=== PATIENT | male | born 1940 | race Caucasian/White ===

== ENCOUNTER → 2016-06-27 | Outpatient (CLI) | payer MEDICARE, OTHER ==
--- NOTE | 2016-06-27 12:46 | Diagnostic Imaging Report ---
INDICATION: Foot ulcer. FINDINGS: Three views of the right foot show no fracture, dislocation, or osteolytic changes in the bone. There are vascular calcifications suggesting diabetes. IMPRESSION: No acute abnormalities in the foot. Dictated by: Dictated on workstation # [id number]
== END ==
LOC: RAD 11:24
PROVIDERS: ATTEND Surgery
DX: E11.621 Type 2 diabetes mellitus with foot ulcer (principal); E11.42 Type 2 diabetes mellitus with diabetic polyneuropathy; L97.411 Non-pressure chronic ulcer of right heel and midfoot limited to breakdown of skin; L97.512 Non-pressure chronic ulcer of other part of right foot with fat layer exposed; I70.235 Atherosclerosis of native arteries of right leg with ulceration of other part of foot; E11.22 Type 2 diabetes mellitus with diabetic chronic kidney disease; N18.6 End stage renal disease
CPT/HCPCS: 73630

== ENCOUNTER 2016-08-10 10:47 | Outpatient (RCR) | payer MEDICARE, OTHER | END 2016-08-10 16:00 | disposition home or self-care (01) | LOC: WOUNDCARE 10:47 | PROVIDERS: ATTEND Surgery | DX: E11.621 Type 2 diabetes mellitus with foot ulcer (principal); E11.42 Type 2 diabetes mellitus with diabetic polyneuropathy; L97.411 Non-pressure chronic ulcer of right heel and midfoot limited to breakdown of skin; L97.512 Non-pressure chronic ulcer of other part of right foot with fat layer exposed; I70.235 Atherosclerosis of native arteries of right leg with ulceration of other part of foot; N18.6 End stage renal disease | CPT/HCPCS: 11042; 73630; 99212; 99213 ==

== ENCOUNTER → 2016-10-22 | Outpatient (CLI) | payer MEDICARE, OTHER ==
--- NOTE | 2016-10-22 14:08 | Diagnostic Imaging Report ---
Three views of the left foot. INDICATION: Chronic ulcer of the fifth metatarsal. FINDINGS: Two areas of ulceration are marked along the lateral aspect of the foot. There are slight irregularities and subchondral sclerosis seen around the adjacent lateral aspect of the fifth metatarsophalangeal joint and associated subchondral cystic change. This appears to be degenerative-related, however. No definite bone destruction or periosteal reaction that correlates with the ulcers to suggest osteomyelitis. Other degenerative changes in the interphalangeal joints seen. No acute fracture. No soft tissue air is evident. IMPRESSION: Degenerative changes. No definite radiographic evidence of osteomyelitis. Dictated by: Dictated on workstation # [id number]
== END ==
LOC: LAB 11:29
PROVIDERS: ATTEND Surgery
DX: E11.621 Type 2 diabetes mellitus with foot ulcer (principal); E11.42 Type 2 diabetes mellitus with diabetic polyneuropathy; I70.244 Atherosclerosis of native arteries of left leg with ulceration of heel and midfoot; L97.422 Non-pressure chronic ulcer of left heel and midfoot with fat layer exposed; I89.0 Lymphedema, not elsewhere classified
CPT/HCPCS: 73630

== ENCOUNTER 2016-12-26 14:45 | Outpatient (RCR) | payer MEDICARE, OTHER | END 2016-12-31 16:00 | disposition home or self-care (01) | LOC: WOUNDCARE 14:45 | PROVIDERS: ATTEND Surgery | DX: E11.621 Type 2 diabetes mellitus with foot ulcer (principal); E11.42 Type 2 diabetes mellitus with diabetic polyneuropathy; L97.422 Non-pressure chronic ulcer of left heel and midfoot with fat layer exposed; I70.244 Atherosclerosis of native arteries of left leg with ulceration of heel and midfoot; I89.0 Lymphedema, not elsewhere classified | CPT/HCPCS: 11042; 15275; 73630; 82962; 87070; 87075; 87077; 87186; 87205 ==

== ENCOUNTER → 2017-01-02 | Outpatient (CLI) | payer MEDICARE, OTHER | LOC: WOUNDCARE 14:15 | PROVIDERS: ATTEND Surgery | DX: E11.621 Type 2 diabetes mellitus with foot ulcer (principal); L97.422 Non-pressure chronic ulcer of left heel and midfoot with fat layer exposed; I70.244 Atherosclerosis of native arteries of left leg with ulceration of heel and midfoot; E11.42 Type 2 diabetes mellitus with diabetic polyneuropathy; N18.6 End stage renal disease | CPT/HCPCS: 15275 ==

== ENCOUNTER → 2017-01-04 | Outpatient (CLI) | payer MEDICARE, OTHER | LOC: WOUNDCARE 14:02 | PROVIDERS: ATTEND Surgery | DX: E11.621 Type 2 diabetes mellitus with foot ulcer (principal); L97.422 Non-pressure chronic ulcer of left heel and midfoot with fat layer exposed; I70.244 Atherosclerosis of native arteries of left leg with ulceration of heel and midfoot; E11.42 Type 2 diabetes mellitus with diabetic polyneuropathy; E11.22 Type 2 diabetes mellitus with diabetic chronic kidney disease; N18.6 End stage renal disease | CPT/HCPCS: 99212 ==

== ENCOUNTER → 2017-01-09 | Outpatient (CLI) | payer MEDICARE, OTHER | LOC: WOUNDCARE 14:17 | PROVIDERS: ATTEND Surgery | DX: E11.621 Type 2 diabetes mellitus with foot ulcer (principal); L97.422 Non-pressure chronic ulcer of left heel and midfoot with fat layer exposed; I70.244 Atherosclerosis of native arteries of left leg with ulceration of heel and midfoot; E11.42 Type 2 diabetes mellitus with diabetic polyneuropathy; E11.22 Type 2 diabetes mellitus with diabetic chronic kidney disease; N18.6 End stage renal disease | CPT/HCPCS: 15275 ==

== ENCOUNTER → 2017-01-11 | Outpatient (CLI) | payer MEDICARE, OTHER | LOC: WOUNDCARE 10:01 | PROVIDERS: ATTEND Surgery | DX: E11.621 Type 2 diabetes mellitus with foot ulcer (principal); L97.422 Non-pressure chronic ulcer of left heel and midfoot with fat layer exposed; I70.244 Atherosclerosis of native arteries of left leg with ulceration of heel and midfoot; E11.42 Type 2 diabetes mellitus with diabetic polyneuropathy; E11.22 Type 2 diabetes mellitus with diabetic chronic kidney disease; N18.6 End stage renal disease | CPT/HCPCS: 99212 ==

== ENCOUNTER → 2017-01-16 | Outpatient (CLI) | payer MEDICARE, OTHER | LOC: WOUNDCARE 14:15 | PROVIDERS: ATTEND Surgery | DX: E11.621 Type 2 diabetes mellitus with foot ulcer (principal); L97.422 Non-pressure chronic ulcer of left heel and midfoot with fat layer exposed; I70.244 Atherosclerosis of native arteries of left leg with ulceration of heel and midfoot; E11.42 Type 2 diabetes mellitus with diabetic polyneuropathy; E11.22 Type 2 diabetes mellitus with diabetic chronic kidney disease; N18.6 End stage renal disease ==

== ENCOUNTER → 2017-01-21 | Outpatient (CLI) | payer MEDICARE, OTHER | LOC: WOUNDCARE 10:26 | PROVIDERS: ATTEND Nurse Practitioner | DX: E11.621 Type 2 diabetes mellitus with foot ulcer (principal); L97.422 Non-pressure chronic ulcer of left heel and midfoot with fat layer exposed; I70.244 Atherosclerosis of native arteries of left leg with ulceration of heel and midfoot; E11.42 Type 2 diabetes mellitus with diabetic polyneuropathy; E11.22 Type 2 diabetes mellitus with diabetic chronic kidney disease; N18.6 End stage renal disease | CPT/HCPCS: 99212 ==

== ENCOUNTER → 2017-01-30 | Outpatient (CLI) | payer MEDICARE, OTHER | LOC: WOUNDCARE 14:12 | PROVIDERS: ATTEND Surgery | DX: E11.621 Type 2 diabetes mellitus with foot ulcer (principal); L97.422 Non-pressure chronic ulcer of left heel and midfoot with fat layer exposed; I70.244 Atherosclerosis of native arteries of left leg with ulceration of heel and midfoot; E11.42 Type 2 diabetes mellitus with diabetic polyneuropathy; N18.6 End stage renal disease | CPT/HCPCS: 11042; 87070; 87075; 87186; 87205 ==

== ENCOUNTER → 2017-02-06 | Outpatient (CLI) | payer MEDICARE, OTHER | LOC: WOUNDCARE 14:11 | PROVIDERS: ATTEND Surgery | DX: E11.621 Type 2 diabetes mellitus with foot ulcer (principal); L97.422 Non-pressure chronic ulcer of left heel and midfoot with fat layer exposed; I70.244 Atherosclerosis of native arteries of left leg with ulceration of heel and midfoot; E11.42 Type 2 diabetes mellitus with diabetic polyneuropathy; N18.6 End stage renal disease | CPT/HCPCS: 11042 ==

== ENCOUNTER → 2017-02-13 | Outpatient (CLI) | payer MEDICARE, OTHER | LOC: WOUNDCARE 13:57 | PROVIDERS: ATTEND Surgery | DX: E11.621 Type 2 diabetes mellitus with foot ulcer (principal); L97.422 Non-pressure chronic ulcer of left heel and midfoot with fat layer exposed; I70.244 Atherosclerosis of native arteries of left leg with ulceration of heel and midfoot; E11.42 Type 2 diabetes mellitus with diabetic polyneuropathy; N18.6 End stage renal disease | CPT/HCPCS: 11042 ==

== ENCOUNTER → 2017-05-17 | Outpatient (CLI) | payer MEDICARE, OTHER ==
--- NOTE | 2017-05-17 13:38 | Diagnostic Imaging Report ---
INDICATION: Pressure ulcer to the lateral aspect of the left foot. FINDINGS: A marker was placed over the level of the distal fifth metatarsal head where a skin ulcer is demonstrated. The metatarsal is intact with no bony erosion. The MP joint appears normal. The phalanges show osteoarthritic changes without destructive bony change. There is mild curved deformity of the fourth metatarsal shaft which may be congenital or secondary to old healed trauma. There is noted diffuse dense vascular calcification. IMPRESSION: Soft tissue ulceration noted along the distal fifth metatarsal head with no bony changes at this time to suggest osteomyelitis. Dictated by: Dictated on workstation # [id number]
== END ==
LOC: RAD 11:44
PROVIDERS: ATTEND Surgery
DX: E11.621 Type 2 diabetes mellitus with foot ulcer (principal); L97.522 Non-pressure chronic ulcer of other part of left foot with fat layer exposed; E11.42 Type 2 diabetes mellitus with diabetic polyneuropathy; E11.22 Type 2 diabetes mellitus with diabetic chronic kidney disease; N18.6 End stage renal disease; I70.245 Atherosclerosis of native arteries of left leg with ulceration of other part of foot
CPT/HCPCS: 73630

== ENCOUNTER → 2017-05-17 | Outpatient (CLI) | payer MEDICARE, OTHER | LOC: WOUNDCARE 09:45 | PROVIDERS: ATTEND Surgery | DX: L97.522 Non-pressure chronic ulcer of other part of left foot with fat layer exposed (principal); E11.621 Type 2 diabetes mellitus with foot ulcer; E11.42 Type 2 diabetes mellitus with diabetic polyneuropathy; I70.245 Atherosclerosis of native arteries of left leg with ulceration of other part of foot; N18.6 End stage renal disease; L97.521 Non-pressure chronic ulcer of other part of left foot limited to breakdown of skin | CPT/HCPCS: 11042; 87070; 87075; 87077; 87186; 87205 ==

== ENCOUNTER → 2017-05-24 | Outpatient (CLI) | payer MEDICARE, OTHER | LOC: WOUNDCARE 10:17 | PROVIDERS: ATTEND Surgery | DX: L97.522 Non-pressure chronic ulcer of other part of left foot with fat layer exposed (principal); E11.621 Type 2 diabetes mellitus with foot ulcer; E11.42 Type 2 diabetes mellitus with diabetic polyneuropathy; I70.245 Atherosclerosis of native arteries of left leg with ulceration of other part of foot; N18.6 End stage renal disease | CPT/HCPCS: 11042 ==

== ENCOUNTER → 2017-06-07 | Outpatient (CLI) | payer MEDICARE, OTHER | LOC: WOUNDCARE 10:19 | PROVIDERS: ATTEND Surgery | DX: L97.522 Non-pressure chronic ulcer of other part of left foot with fat layer exposed (principal); E11.621 Type 2 diabetes mellitus with foot ulcer; E11.42 Type 2 diabetes mellitus with diabetic polyneuropathy; I70.245 Atherosclerosis of native arteries of left leg with ulceration of other part of foot; N18.6 End stage renal disease | CPT/HCPCS: 15275 ==

== ENCOUNTER → 2017-06-14 | Outpatient (CLI) | payer MEDICARE, OTHER | LOC: WOUNDCARE 10:24 | PROVIDERS: ATTEND Surgery | DX: E11.621 Type 2 diabetes mellitus with foot ulcer (principal); E11.42 Type 2 diabetes mellitus with diabetic polyneuropathy; L97.522 Non-pressure chronic ulcer of other part of left foot with fat layer exposed; I70.245 Atherosclerosis of native arteries of left leg with ulceration of other part of foot; N18.6 End stage renal disease | CPT/HCPCS: 15275 ==

== ENCOUNTER → 2017-06-21 | Outpatient (CLI) | payer MEDICARE, OTHER | LOC: WOUNDCARE 09:25 | PROVIDERS: ATTEND Surgery | DX: E11.621 Type 2 diabetes mellitus with foot ulcer (principal); E11.42 Type 2 diabetes mellitus with diabetic polyneuropathy; L97.522 Non-pressure chronic ulcer of other part of left foot with fat layer exposed; I70.245 Atherosclerosis of native arteries of left leg with ulceration of other part of foot; N18.6 End stage renal disease | CPT/HCPCS: 11042 ==

== ENCOUNTER → 2017-06-28 | Outpatient (CLI) | payer MEDICARE, OTHER | LOC: WOUNDCARE 10:13 | PROVIDERS: ATTEND Surgery | DX: E11.621 Type 2 diabetes mellitus with foot ulcer (principal); E11.42 Type 2 diabetes mellitus with diabetic polyneuropathy; L97.522 Non-pressure chronic ulcer of other part of left foot with fat layer exposed; N18.6 End stage renal disease; I70.245 Atherosclerosis of native arteries of left leg with ulceration of other part of foot | CPT/HCPCS: 11042 ==

== ENCOUNTER → 2017-07-05 | Outpatient (CLI) | payer MEDICARE, OTHER | LOC: WOUNDCARE 09:20 | PROVIDERS: ATTEND Surgery | DX: L97.522 Non-pressure chronic ulcer of other part of left foot with fat layer exposed (principal); I70.245 Atherosclerosis of native arteries of left leg with ulceration of other part of foot; E11.621 Type 2 diabetes mellitus with foot ulcer; E11.42 Type 2 diabetes mellitus with diabetic polyneuropathy; N18.6 End stage renal disease | CPT/HCPCS: 11042 ==

== ENCOUNTER → 2017-07-10 | Outpatient (CLI) | payer MEDICARE, OTHER | LOC: WOUNDCARE 09:37 | PROVIDERS: ATTEND Surgery | DX: E11.621 Type 2 diabetes mellitus with foot ulcer (principal); L97.522 Non-pressure chronic ulcer of other part of left foot with fat layer exposed; I70.245 Atherosclerosis of native arteries of left leg with ulceration of other part of foot; T25.232A Burn of second degree of left toe(s) (nail), initial encounter; E11.42 Type 2 diabetes mellitus with diabetic polyneuropathy; E11.22 Type 2 diabetes mellitus with diabetic chronic kidney disease; N18.6 End stage renal disease | CPT/HCPCS: 11042; 16020 ==

== ENCOUNTER → 2017-07-19 | Outpatient (CLI) | payer MEDICARE, OTHER | LOC: WOUNDCARE 09:22 | PROVIDERS: ATTEND Surgery | DX: T25.232A Burn of second degree of left toe(s) (nail), initial encounter (principal); I70.245 Atherosclerosis of native arteries of left leg with ulceration of other part of foot; E11.621 Type 2 diabetes mellitus with foot ulcer; E11.42 Type 2 diabetes mellitus with diabetic polyneuropathy; L97.522 Non-pressure chronic ulcer of other part of left foot with fat layer exposed; N18.6 End stage renal disease | CPT/HCPCS: 16020 ==

== ENCOUNTER → 2017-07-26 | Outpatient (CLI) | payer MEDICARE, OTHER | LOC: WOUNDCARE 09:22 | PROVIDERS: ATTEND Surgery | DX: T25.232A Burn of second degree of left toe(s) (nail), initial encounter (principal); E11.621 Type 2 diabetes mellitus with foot ulcer; E11.42 Type 2 diabetes mellitus with diabetic polyneuropathy; I70.245 Atherosclerosis of native arteries of left leg with ulceration of other part of foot; N18.6 End stage renal disease | CPT/HCPCS: 16020 ==

== ENCOUNTER → 2017-08-02 | Outpatient (CLI) | payer MEDICARE, OTHER | LOC: WOUNDCARE 09:26 | PROVIDERS: ATTEND Surgery | DX: T25.232A Burn of second degree of left toe(s) (nail), initial encounter (principal); E11.621 Type 2 diabetes mellitus with foot ulcer; E11.42 Type 2 diabetes mellitus with diabetic polyneuropathy; I70.245 Atherosclerosis of native arteries of left leg with ulceration of other part of foot; N18.6 End stage renal disease; L97.522 Non-pressure chronic ulcer of other part of left foot with fat layer exposed ==

== ENCOUNTER → 2017-08-07 | Outpatient (CLI) | payer MEDICARE, OTHER | LOC: WOUNDCARE 08:19 | PROVIDERS: ATTEND Surgery | DX: T25.232A Burn of second degree of left toe(s) (nail), initial encounter (principal); E11.621 Type 2 diabetes mellitus with foot ulcer; E11.42 Type 2 diabetes mellitus with diabetic polyneuropathy; I70.245 Atherosclerosis of native arteries of left leg with ulceration of other part of foot; N18.6 End stage renal disease | CPT/HCPCS: 16020 ==

== ENCOUNTER → 2017-08-16 | Outpatient (CLI) | payer MEDICARE, OTHER | LOC: WOUNDCARE 09:16 | PROVIDERS: ATTEND Surgery | DX: T25.332A Burn of third degree of left toe(s) (nail), initial encounter (principal); T25.232A Burn of second degree of left toe(s) (nail), initial encounter; E11.621 Type 2 diabetes mellitus with foot ulcer; E11.42 Type 2 diabetes mellitus with diabetic polyneuropathy; I70.245 Atherosclerosis of native arteries of left leg with ulceration of other part of foot; N18.6 End stage renal disease | CPT/HCPCS: 16020; 87070; 87075; 87186; 87205 ==

== ENCOUNTER → 2017-08-23 | Outpatient (CLI) | payer MEDICARE, OTHER | LOC: WOUNDCARE 09:19 | PROVIDERS: ATTEND Surgery | DX: T25.332A Burn of third degree of left toe(s) (nail), initial encounter (principal); T25.232A Burn of second degree of left toe(s) (nail), initial encounter; E11.621 Type 2 diabetes mellitus with foot ulcer; E11.42 Type 2 diabetes mellitus with diabetic polyneuropathy; I70.245 Atherosclerosis of native arteries of left leg with ulceration of other part of foot; N18.6 End stage renal disease | CPT/HCPCS: 16020 ==

== ENCOUNTER → 2017-08-28 | Outpatient (CLI) | payer MEDICARE, OTHER | LOC: WOUNDCARE 08:21 | PROVIDERS: ATTEND Surgery | DX: E11.621 Type 2 diabetes mellitus with foot ulcer (principal); L97.522 Non-pressure chronic ulcer of other part of left foot with fat layer exposed; L97.521 Non-pressure chronic ulcer of other part of left foot limited to breakdown of skin; I70.245 Atherosclerosis of native arteries of left leg with ulceration of other part of foot; E11.42 Type 2 diabetes mellitus with diabetic polyneuropathy; N18.6 End stage renal disease | CPT/HCPCS: 11042; 16020; 97597 ==

== ENCOUNTER → 2017-09-06 | Outpatient (CLI) | payer MEDICARE, OTHER | LOC: WOUNDCARE 09:20 | PROVIDERS: ATTEND Surgery | DX: L97.522 Non-pressure chronic ulcer of other part of left foot with fat layer exposed (principal); E11.621 Type 2 diabetes mellitus with foot ulcer; E11.42 Type 2 diabetes mellitus with diabetic polyneuropathy; I70.245 Atherosclerosis of native arteries of left leg with ulceration of other part of foot; N18.6 End stage renal disease | CPT/HCPCS: 11042; 87070; 87075; 87077; 87186; 87205 ==

== ENCOUNTER → 2017-09-13 | Outpatient (CLI) | payer MEDICARE, OTHER | LOC: WOUNDCARE 09:23 | PROVIDERS: ATTEND Surgery | DX: E11.621 Type 2 diabetes mellitus with foot ulcer (principal); E11.42 Type 2 diabetes mellitus with diabetic polyneuropathy; L97.522 Non-pressure chronic ulcer of other part of left foot with fat layer exposed; I70.245 Atherosclerosis of native arteries of left leg with ulceration of other part of foot; N18.6 End stage renal disease | CPT/HCPCS: 15275 ==

== ENCOUNTER → 2017-09-27 | Outpatient (CLI) | payer MEDICARE, OTHER | LOC: WOUNDCARE 09:20 | PROVIDERS: ATTEND Nurse Practitioner | DX: E11.621 Type 2 diabetes mellitus with foot ulcer (principal); E11.42 Type 2 diabetes mellitus with diabetic polyneuropathy; L97.522 Non-pressure chronic ulcer of other part of left foot with fat layer exposed; I70.245 Atherosclerosis of native arteries of left leg with ulceration of other part of foot; N18.6 End stage renal disease | CPT/HCPCS: 15275 ==

== ENCOUNTER → 2017-10-04 | Outpatient (CLI) | payer MEDICARE, OTHER | LOC: WOUNDCARE 09:21 | PROVIDERS: ATTEND Surgery | DX: E11.621 Type 2 diabetes mellitus with foot ulcer (principal); E11.42 Type 2 diabetes mellitus with diabetic polyneuropathy; L97.522 Non-pressure chronic ulcer of other part of left foot with fat layer exposed; I70.245 Atherosclerosis of native arteries of left leg with ulceration of other part of foot; N18.6 End stage renal disease | CPT/HCPCS: 15275; 87070; 87075; 87077; 87186; 87205 ==

== ENCOUNTER → 2017-10-25 | Outpatient (CLI) | payer MEDICARE, OTHER | LOC: WOUNDCARE 09:17 | PROVIDERS: ATTEND Surgery | DX: E11.621 Type 2 diabetes mellitus with foot ulcer (principal); E11.42 Type 2 diabetes mellitus with diabetic polyneuropathy; L97.522 Non-pressure chronic ulcer of other part of left foot with fat layer exposed; I70.245 Atherosclerosis of native arteries of left leg with ulceration of other part of foot; N18.6 End stage renal disease | CPT/HCPCS: 15275 ==

== ENCOUNTER → 2017-10-30 | Outpatient (CLI) | payer MEDICARE, OTHER | LOC: WOUNDCARE 10:26 | PROVIDERS: ATTEND Surgery | DX: E11.621 Type 2 diabetes mellitus with foot ulcer (principal); I70.245 Atherosclerosis of native arteries of left leg with ulceration of other part of foot; L97.522 Non-pressure chronic ulcer of other part of left foot with fat layer exposed; E11.42 Type 2 diabetes mellitus with diabetic polyneuropathy; E11.22 Type 2 diabetes mellitus with diabetic chronic kidney disease; N18.6 End stage renal disease | CPT/HCPCS: 15275 ==

== ENCOUNTER → 2017-11-04 | Outpatient (CLI) | payer MEDICARE, OTHER | LOC: WOUNDCARE 13:00 | PROVIDERS: ATTEND Nurse Practitioner | DX: E11.621 Type 2 diabetes mellitus with foot ulcer (principal); E11.42 Type 2 diabetes mellitus with diabetic polyneuropathy; L97.522 Non-pressure chronic ulcer of other part of left foot with fat layer exposed; I70.245 Atherosclerosis of native arteries of left leg with ulceration of other part of foot; N18.6 End stage renal disease | CPT/HCPCS: 15275 ==

== ENCOUNTER → 2017-11-15 | Outpatient (CLI) | payer MEDICARE, OTHER | LOC: WOUNDCARE 07:59 | PROVIDERS: ATTEND Surgery | DX: E11.621 Type 2 diabetes mellitus with foot ulcer (principal); L97.522 Non-pressure chronic ulcer of other part of left foot with fat layer exposed; I70.245 Atherosclerosis of native arteries of left leg with ulceration of other part of foot; E11.42 Type 2 diabetes mellitus with diabetic polyneuropathy; N18.6 End stage renal disease | CPT/HCPCS: 15275 ==

== ENCOUNTER → 2017-11-29 | Outpatient (CLI) | payer MEDICARE, OTHER | LOC: WOUNDCARE 08:59 | PROVIDERS: ATTEND Surgery | DX: E11.621 Type 2 diabetes mellitus with foot ulcer (principal); E11.42 Type 2 diabetes mellitus with diabetic polyneuropathy; L97.522 Non-pressure chronic ulcer of other part of left foot with fat layer exposed; I70.245 Atherosclerosis of native arteries of left leg with ulceration of other part of foot; N18.6 End stage renal disease | CPT/HCPCS: 15275 ==

== ENCOUNTER → 2017-12-06 | Outpatient (CLI) | payer MEDICARE, OTHER | LOC: WOUNDCARE 08:49 | PROVIDERS: ATTEND Surgery | DX: E11.621 Type 2 diabetes mellitus with foot ulcer (principal); I70.245 Atherosclerosis of native arteries of left leg with ulceration of other part of foot; L97.522 Non-pressure chronic ulcer of other part of left foot with fat layer exposed; E11.42 Type 2 diabetes mellitus with diabetic polyneuropathy; N18.6 End stage renal disease | CPT/HCPCS: 11042 ==

== ENCOUNTER → 2017-12-13 | Outpatient (CLI) | payer MEDICARE, OTHER | LOC: WOUNDCARE 07:58 | PROVIDERS: ATTEND Surgery | DX: E11.621 Type 2 diabetes mellitus with foot ulcer (principal); L97.522 Non-pressure chronic ulcer of other part of left foot with fat layer exposed; E11.42 Type 2 diabetes mellitus with diabetic polyneuropathy; I70.245 Atherosclerosis of native arteries of left leg with ulceration of other part of foot; N18.6 End stage renal disease | CPT/HCPCS: 11042 ==

== ENCOUNTER → 2017-12-20 | Outpatient (CLI) | payer MEDICARE, OTHER | LOC: WOUNDCARE 08:02 | PROVIDERS: ATTEND Surgery | DX: E11.621 Type 2 diabetes mellitus with foot ulcer (principal); L97.522 Non-pressure chronic ulcer of other part of left foot with fat layer exposed; E11.42 Type 2 diabetes mellitus with diabetic polyneuropathy; I70.245 Atherosclerosis of native arteries of left leg with ulceration of other part of foot; N18.6 End stage renal disease | CPT/HCPCS: 11042 ==

== ENCOUNTER → 2017-12-27 | Outpatient (CLI) | payer MEDICARE, OTHER | LOC: WOUNDCARE 08:10 | PROVIDERS: ATTEND Surgery | DX: E11.621 Type 2 diabetes mellitus with foot ulcer (principal); L97.522 Non-pressure chronic ulcer of other part of left foot with fat layer exposed; E11.42 Type 2 diabetes mellitus with diabetic polyneuropathy; I70.245 Atherosclerosis of native arteries of left leg with ulceration of other part of foot; N18.6 End stage renal disease | CPT/HCPCS: 11042 ==

== ENCOUNTER → 2018-01-03 | Outpatient (CLI) | payer MEDICARE, OTHER | LOC: WOUNDCARE 08:58 | PROVIDERS: ATTEND Nurse Practitioner | DX: E11.621 Type 2 diabetes mellitus with foot ulcer (principal); I70.245 Atherosclerosis of native arteries of left leg with ulceration of other part of foot; L97.522 Non-pressure chronic ulcer of other part of left foot with fat layer exposed; E11.42 Type 2 diabetes mellitus with diabetic polyneuropathy; N18.6 End stage renal disease | CPT/HCPCS: 11042; 87070; 87075; 87077; 87186; 87205 ==

== ENCOUNTER → 2018-01-10 | Outpatient (CLI) | payer MEDICARE, OTHER | LOC: WOUNDCARE 08:22 | PROVIDERS: ATTEND Surgery | DX: E11.621 Type 2 diabetes mellitus with foot ulcer (principal); L97.522 Non-pressure chronic ulcer of other part of left foot with fat layer exposed; E11.42 Type 2 diabetes mellitus with diabetic polyneuropathy; I70.245 Atherosclerosis of native arteries of left leg with ulceration of other part of foot; N18.6 End stage renal disease | CPT/HCPCS: 11042 ==

== ENCOUNTER → 2018-01-17 | Outpatient (CLI) | payer MEDICARE, OTHER | LOC: WOUNDCARE 08:21 | PROVIDERS: ATTEND Surgery | DX: E11.621 Type 2 diabetes mellitus with foot ulcer (principal); E11.42 Type 2 diabetes mellitus with diabetic polyneuropathy; L97.522 Non-pressure chronic ulcer of other part of left foot with fat layer exposed; I70.245 Atherosclerosis of native arteries of left leg with ulceration of other part of foot; N18.6 End stage renal disease | CPT/HCPCS: 15275 ==

== ENCOUNTER → 2018-01-31 | Outpatient (CLI) | payer MEDICARE, OTHER | LOC: WOUNDCARE 08:50 | PROVIDERS: ATTEND Surgery | DX: E11.621 Type 2 diabetes mellitus with foot ulcer (principal); E11.42 Type 2 diabetes mellitus with diabetic polyneuropathy; L97.522 Non-pressure chronic ulcer of other part of left foot with fat layer exposed; I70.245 Atherosclerosis of native arteries of left leg with ulceration of other part of foot; N18.6 End stage renal disease | CPT/HCPCS: 15275 ==

== ENCOUNTER → 2018-02-07 | Outpatient (CLI) | payer MEDICARE, OTHER | LOC: WOUNDCARE 08:48 | PROVIDERS: ATTEND Surgery | DX: E11.621 Type 2 diabetes mellitus with foot ulcer (principal); L97.522 Non-pressure chronic ulcer of other part of left foot with fat layer exposed; I70.245 Atherosclerosis of native arteries of left leg with ulceration of other part of foot; N18.6 End stage renal disease | CPT/HCPCS: 99212 ==

== ENCOUNTER → 2018-05-05 | Outpatient (CLI) | payer MEDICARE, OTHER | LOC: WOUNDCARE 12:06 | PROVIDERS: ATTEND Nurse Practitioner | DX: E11.622 Type 2 diabetes mellitus with other skin ulcer (principal); L03.011 Cellulitis of right finger; L98.492 Non-pressure chronic ulcer of skin of other sites with fat layer exposed; N18.6 End stage renal disease | CPT/HCPCS: 99213 ==

== ENCOUNTER → 2018-05-12 | Outpatient (CLI) | payer MEDICARE, OTHER | LOC: WOUNDCARE 12:07 | PROVIDERS: ATTEND Nurse Practitioner | DX: E11.622 Type 2 diabetes mellitus with other skin ulcer (principal); L98.492 Non-pressure chronic ulcer of skin of other sites with fat layer exposed; L03.011 Cellulitis of right finger; N18.6 End stage renal disease | CPT/HCPCS: 99212 ==

== ENCOUNTER → 2018-05-19 | Outpatient (CLI) | payer MEDICARE, OTHER | LOC: WOUNDCARE 12:26 | PROVIDERS: ATTEND Nurse Practitioner | DX: E11.622 Type 2 diabetes mellitus with other skin ulcer (principal); L98.492 Non-pressure chronic ulcer of skin of other sites with fat layer exposed; L03.011 Cellulitis of right finger; N18.6 End stage renal disease | CPT/HCPCS: 99212 ==

== ENCOUNTER → 2018-06-02 | Outpatient (CLI) | payer MEDICARE, OTHER | LOC: WOUNDCARE 08:08 | PROVIDERS: ATTEND Nurse Practitioner | DX: E11.622 Type 2 diabetes mellitus with other skin ulcer (principal); L98.492 Non-pressure chronic ulcer of skin of other sites with fat layer exposed; L03.011 Cellulitis of right finger; N18.6 End stage renal disease | CPT/HCPCS: 99212 ==

== ENCOUNTER → 2018-06-16 | Outpatient (CLI) | payer MEDICARE, OTHER | LOC: WOUNDCARE 12:25 | PROVIDERS: ATTEND Surgery | DX: I70.298 Other atherosclerosis of native arteries of extremities, other extremity (principal); E11.622 Type 2 diabetes mellitus with other skin ulcer; L98.492 Non-pressure chronic ulcer of skin of other sites with fat layer exposed; L03.011 Cellulitis of right finger; N18.6 End stage renal disease | CPT/HCPCS: 99212 ==

== ENCOUNTER → 2018-06-23 | Outpatient (CLI) | payer MEDICARE, OTHER | LOC: WOUNDCARE 12:22 | PROVIDERS: ATTEND Surgery | DX: E11.622 Type 2 diabetes mellitus with other skin ulcer (principal); I70.298 Other atherosclerosis of native arteries of extremities, other extremity; L98.492 Non-pressure chronic ulcer of skin of other sites with fat layer exposed; N18.6 End stage renal disease | CPT/HCPCS: 99212 ==

== ENCOUNTER → 2018-06-30 | Outpatient (CLI) | payer MEDICARE, OTHER | LOC: WOUNDCARE 12:24 | PROVIDERS: ATTEND Surgery | DX: E11.622 Type 2 diabetes mellitus with other skin ulcer (principal); L98.492 Non-pressure chronic ulcer of skin of other sites with fat layer exposed; I70.298 Other atherosclerosis of native arteries of extremities, other extremity; N18.6 End stage renal disease | CPT/HCPCS: 99212 ==

== ENCOUNTER → 2018-07-14 | Outpatient (CLI) | payer MEDICARE, OTHER | LOC: WOUNDCARE 12:22 | PROVIDERS: ATTEND Surgery | DX: E11.622 Type 2 diabetes mellitus with other skin ulcer (principal); I70.298 Other atherosclerosis of native arteries of extremities, other extremity; L98.492 Non-pressure chronic ulcer of skin of other sites with fat layer exposed; N18.6 End stage renal disease | CPT/HCPCS: 99212 ==

== ENCOUNTER → 2018-07-28 | Outpatient (CLI) | payer MEDICARE, OTHER | LOC: WOUNDCARE 12:23 | PROVIDERS: ATTEND Surgery | DX: E11.622 Type 2 diabetes mellitus with other skin ulcer (principal); I70.298 Other atherosclerosis of native arteries of extremities, other extremity; L98.492 Non-pressure chronic ulcer of skin of other sites with fat layer exposed; N18.6 End stage renal disease | CPT/HCPCS: 99213 ==

== ENCOUNTER → 2018-08-11 | Outpatient (CLI) | payer MEDICARE, OTHER | LOC: WOUNDCARE 12:31 | PROVIDERS: ATTEND Surgery | DX: E11.622 Type 2 diabetes mellitus with other skin ulcer (principal); I70.298 Other atherosclerosis of native arteries of extremities, other extremity; L98.492 Non-pressure chronic ulcer of skin of other sites with fat layer exposed; N18.6 End stage renal disease | CPT/HCPCS: 99212 ==

== ENCOUNTER → 2018-08-25 | Outpatient (CLI) | payer MEDICARE, OTHER | LOC: WOUNDCARE 12:38 | PROVIDERS: ATTEND Surgery | DX: E11.622 Type 2 diabetes mellitus with other skin ulcer (principal); I70.298 Other atherosclerosis of native arteries of extremities, other extremity; L98.491 Non-pressure chronic ulcer of skin of other sites limited to breakdown of skin; L98.492 Non-pressure chronic ulcer of skin of other sites with fat layer exposed; N18.6 End stage renal disease | CPT/HCPCS: 99213 ==

== ENCOUNTER → 2018-09-08 | Outpatient (CLI) | payer MEDICARE, OTHER | LOC: WOUNDCARE 12:39 | PROVIDERS: ATTEND Surgery | DX: E11.622 Type 2 diabetes mellitus with other skin ulcer (principal); I70.298 Other atherosclerosis of native arteries of extremities, other extremity; L98.491 Non-pressure chronic ulcer of skin of other sites limited to breakdown of skin; L98.492 Non-pressure chronic ulcer of skin of other sites with fat layer exposed; N18.6 End stage renal disease | CPT/HCPCS: 99212 ==

== ENCOUNTER → 2018-10-01 | Outpatient (CLI) | payer MEDICARE, OTHER | LOC: WOUNDCARE 14:24 | PROVIDERS: ATTEND Surgery | DX: I70.298 Other atherosclerosis of native arteries of extremities, other extremity (principal); E11.622 Type 2 diabetes mellitus with other skin ulcer; L98.493 Non-pressure chronic ulcer of skin of other sites with necrosis of muscle; L03.113 Cellulitis of right upper limb; N18.6 End stage renal disease | CPT/HCPCS: 11043; 87070; 87077; 87186; 87205 ==

== ENCOUNTER → 2018-10-06 | Outpatient (CLI) | payer MEDICARE, OTHER | LOC: WOUNDCARE 12:39 | PROVIDERS: ATTEND Surgery | DX: I70.298 Other atherosclerosis of native arteries of extremities, other extremity (principal); E11.622 Type 2 diabetes mellitus with other skin ulcer; L98.493 Non-pressure chronic ulcer of skin of other sites with necrosis of muscle; L03.113 Cellulitis of right upper limb; E11.22 Type 2 diabetes mellitus with diabetic chronic kidney disease; N18.6 End stage renal disease | CPT/HCPCS: 99213 ==

== ENCOUNTER → 2018-10-13 | Outpatient (CLI) | payer MEDICARE, OTHER | LOC: WOUNDCARE 12:40 | PROVIDERS: ATTEND Surgery | DX: I70.298 Other atherosclerosis of native arteries of extremities, other extremity (principal); E11.622 Type 2 diabetes mellitus with other skin ulcer; L98.493 Non-pressure chronic ulcer of skin of other sites with necrosis of muscle; L03.113 Cellulitis of right upper limb; E11.22 Type 2 diabetes mellitus with diabetic chronic kidney disease; N18.6 End stage renal disease | CPT/HCPCS: 99212 ==

== ENCOUNTER → 2018-10-20 | Outpatient (CLI) | payer MEDICARE, OTHER | LOC: WOUNDCARE 12:34 | PROVIDERS: ATTEND Surgery | DX: E11.622 Type 2 diabetes mellitus with other skin ulcer (principal); I70.298 Other atherosclerosis of native arteries of extremities, other extremity; L98.493 Non-pressure chronic ulcer of skin of other sites with necrosis of muscle; E11.22 Type 2 diabetes mellitus with diabetic chronic kidney disease; N18.6 End stage renal disease | CPT/HCPCS: 99212 ==

== ENCOUNTER → 2018-11-03 | Outpatient (CLI) | payer MEDICARE, OTHER | LOC: WOUNDCARE 12:43 | PROVIDERS: ATTEND Surgery | DX: E11.622 Type 2 diabetes mellitus with other skin ulcer (principal); I70.298 Other atherosclerosis of native arteries of extremities, other extremity; L98.493 Non-pressure chronic ulcer of skin of other sites with necrosis of muscle; E11.22 Type 2 diabetes mellitus with diabetic chronic kidney disease; N18.6 End stage renal disease | CPT/HCPCS: 99212 ==

== ENCOUNTER → 2018-11-10 | Outpatient (CLI) | payer MEDICARE, OTHER | LOC: WOUNDCARE 14:05 | PROVIDERS: ATTEND Surgery | DX: E11.622 Type 2 diabetes mellitus with other skin ulcer (principal); I70.298 Other atherosclerosis of native arteries of extremities, other extremity; L98.493 Non-pressure chronic ulcer of skin of other sites with necrosis of muscle; E11.22 Type 2 diabetes mellitus with diabetic chronic kidney disease; N18.6 End stage renal disease | CPT/HCPCS: 99212 ==

== ENCOUNTER → 2018-11-24 | Outpatient (CLI) | payer MEDICARE, OTHER | LOC: WOUNDCARE 08:51 | PROVIDERS: ATTEND Surgery | DX: E11.622 Type 2 diabetes mellitus with other skin ulcer (principal); I70.298 Other atherosclerosis of native arteries of extremities, other extremity; L98.493 Non-pressure chronic ulcer of skin of other sites with necrosis of muscle; E11.22 Type 2 diabetes mellitus with diabetic chronic kidney disease; N18.6 End stage renal disease | CPT/HCPCS: 99212 ==

== ENCOUNTER → 2018-12-08 | Outpatient (CLI) | payer MEDICARE, OTHER | LOC: WOUNDCARE 11:22 | PROVIDERS: ATTEND Surgery | DX: L98.493 Non-pressure chronic ulcer of skin of other sites with necrosis of muscle (principal); I70.298 Other atherosclerosis of native arteries of extremities, other extremity; E11.622 Type 2 diabetes mellitus with other skin ulcer; E11.22 Type 2 diabetes mellitus with diabetic chronic kidney disease; N18.6 End stage renal disease | CPT/HCPCS: 99212 ==

== ENCOUNTER → 2018-12-22 | Outpatient (CLI) | payer MEDICARE, OTHER | LOC: WOUNDCARE 11:23 | PROVIDERS: ATTEND Surgery | DX: L98.493 Non-pressure chronic ulcer of skin of other sites with necrosis of muscle (principal); I70.298 Other atherosclerosis of native arteries of extremities, other extremity; E11.622 Type 2 diabetes mellitus with other skin ulcer; E11.22 Type 2 diabetes mellitus with diabetic chronic kidney disease; N18.6 End stage renal disease; E11.52 Type 2 diabetes mellitus with diabetic peripheral angiopathy with gangrene; I96 Gangrene, not elsewhere classified | CPT/HCPCS: 99212 ==

== ENCOUNTER → 2019-01-26 | Outpatient (CLI) | payer MEDICARE, OTHER | LOC: WOUNDCARE 11:23 | PROVIDERS: ATTEND Surgery | DX: E11.622 Type 2 diabetes mellitus with other skin ulcer (principal); E11.52 Type 2 diabetes mellitus with diabetic peripheral angiopathy with gangrene; E11.22 Type 2 diabetes mellitus with diabetic chronic kidney disease; N18.6 End stage renal disease; I70.268 Atherosclerosis of native arteries of extremities with gangrene, other extremity; L98.493 Non-pressure chronic ulcer of skin of other sites with necrosis of muscle | CPT/HCPCS: 99212 ==

== ENCOUNTER → 2019-02-23 | Outpatient (CLI) | payer MEDICARE, OTHER | LOC: WOUNDCARE 11:24 | PROVIDERS: ATTEND Surgery | DX: E11.622 Type 2 diabetes mellitus with other skin ulcer (principal); E11.52 Type 2 diabetes mellitus with diabetic peripheral angiopathy with gangrene; E11.22 Type 2 diabetes mellitus with diabetic chronic kidney disease; I70.268 Atherosclerosis of native arteries of extremities with gangrene, other extremity; L98.493 Non-pressure chronic ulcer of skin of other sites with necrosis of muscle; M00.841 Arthritis due to other bacteria, right hand; N18.6 End stage renal disease | CPT/HCPCS: 11042 ==

== ENCOUNTER → 2019-03-02 | Outpatient (CLI) | payer MEDICARE, OTHER | LOC: WOUNDCARE 11:24 | PROVIDERS: ATTEND Surgery | DX: E11.622 Type 2 diabetes mellitus with other skin ulcer (principal); E11.22 Type 2 diabetes mellitus with diabetic chronic kidney disease; E11.52 Type 2 diabetes mellitus with diabetic peripheral angiopathy with gangrene; I70.268 Atherosclerosis of native arteries of extremities with gangrene, other extremity; L98.492 Non-pressure chronic ulcer of skin of other sites with fat layer exposed; N18.6 End stage renal disease; M00.841 Arthritis due to other bacteria, right hand | CPT/HCPCS: 99212 ==

== ENCOUNTER → 2019-03-16 | Outpatient (CLI) | payer MEDICARE, OTHER | LOC: WOUNDCARE 11:18 | PROVIDERS: ATTEND Surgery | DX: L98.492 Non-pressure chronic ulcer of skin of other sites with fat layer exposed (principal); I70.208 Unspecified atherosclerosis of native arteries of extremities, other extremity; E11.622 Type 2 diabetes mellitus with other skin ulcer; E11.52 Type 2 diabetes mellitus with diabetic peripheral angiopathy with gangrene; E11.22 Type 2 diabetes mellitus with diabetic chronic kidney disease; N18.6 End stage renal disease | CPT/HCPCS: 99212 ==

== ENCOUNTER → 2019-04-06 | Outpatient (CLI) | payer MEDICARE, OTHER | LOC: WOUNDCARE 13:17 | PROVIDERS: ATTEND Surgery | DX: M00.841 Arthritis due to other bacteria, right hand (principal); L98.492 Non-pressure chronic ulcer of skin of other sites with fat layer exposed; I70.208 Unspecified atherosclerosis of native arteries of extremities, other extremity; E11.622 Type 2 diabetes mellitus with other skin ulcer; E11.52 Type 2 diabetes mellitus with diabetic peripheral angiopathy with gangrene; E11.22 Type 2 diabetes mellitus with diabetic chronic kidney disease; N18.6 End stage renal disease | CPT/HCPCS: 99212 ==

== ENCOUNTER → 2019-05-04 | Outpatient (CLI) | payer MEDICARE, OTHER | LOC: WOUNDCARE 14:11 | PROVIDERS: ATTEND Surgery | DX: E11.622 Type 2 diabetes mellitus with other skin ulcer (principal); E11.52 Type 2 diabetes mellitus with diabetic peripheral angiopathy with gangrene; E11.22 Type 2 diabetes mellitus with diabetic chronic kidney disease; N18.6 End stage renal disease; I70.268 Atherosclerosis of native arteries of extremities with gangrene, other extremity; L98.492 Non-pressure chronic ulcer of skin of other sites with fat layer exposed; M00.841 Arthritis due to other bacteria, right hand | CPT/HCPCS: 99212 ==

== ENCOUNTER → 2019-05-25 | Outpatient (CLI) | payer MEDICARE, OTHER | LOC: WOUNDCARE 14:02 | PROVIDERS: ATTEND Surgery | DX: L98.492 Non-pressure chronic ulcer of skin of other sites with fat layer exposed (principal); I70.298 Other atherosclerosis of native arteries of extremities, other extremity; E11.622 Type 2 diabetes mellitus with other skin ulcer; E11.52 Type 2 diabetes mellitus with diabetic peripheral angiopathy with gangrene; M00.831 Arthritis due to other bacteria, right wrist; N18.6 End stage renal disease | CPT/HCPCS: 11042 ==

== ENCOUNTER → 2019-06-22 | Outpatient (CLI) | payer MEDICARE, OTHER | LOC: WOUNDCARE 14:02 | PROVIDERS: ATTEND Preventive Medicine Undersea and Hyperbaric Medicine | DX: E11.622 Type 2 diabetes mellitus with other skin ulcer (principal); L98.492 Non-pressure chronic ulcer of skin of other sites with fat layer exposed; I70.298 Other atherosclerosis of native arteries of extremities, other extremity; M00.831 Arthritis due to other bacteria, right wrist; N18.6 End stage renal disease | CPT/HCPCS: 87070; 87075; 87205; 99213 ==

== ENCOUNTER → 2019-07-13 | Outpatient (CLI) | payer MEDICARE, OTHER | LOC: WOUNDCARE 14:07 | PROVIDERS: ATTEND Preventive Medicine Undersea and Hyperbaric Medicine | DX: E11.622 Type 2 diabetes mellitus with other skin ulcer (principal); L98.492 Non-pressure chronic ulcer of skin of other sites with fat layer exposed; I70.298 Other atherosclerosis of native arteries of extremities, other extremity; M00.831 Arthritis due to other bacteria, right wrist; N18.6 End stage renal disease | CPT/HCPCS: 99212 ==

== ENCOUNTER → 2019-08-03 | Outpatient (CLI) | payer MEDICARE, OTHER | LOC: WOUNDCARE 12:39 | PROVIDERS: ATTEND Surgery | DX: L98.492 Non-pressure chronic ulcer of skin of other sites with fat layer exposed (principal); I70.208 Unspecified atherosclerosis of native arteries of extremities, other extremity; E11.622 Type 2 diabetes mellitus with other skin ulcer; E11.52 Type 2 diabetes mellitus with diabetic peripheral angiopathy with gangrene; E11.22 Type 2 diabetes mellitus with diabetic chronic kidney disease; N18.6 End stage renal disease | CPT/HCPCS: 99212 ==

== ENCOUNTER → 2019-08-31 | Outpatient (CLI) | payer MEDICARE, OTHER | LOC: WOUNDCARE 14:00 | PROVIDERS: ATTEND Surgery | DX: E11.622 Type 2 diabetes mellitus with other skin ulcer (principal); L98.492 Non-pressure chronic ulcer of skin of other sites with fat layer exposed; I70.208 Unspecified atherosclerosis of native arteries of extremities, other extremity; E11.22 Type 2 diabetes mellitus with diabetic chronic kidney disease; N18.6 End stage renal disease | CPT/HCPCS: 99212 ==

== ENCOUNTER → 2019-09-21 | Outpatient (CLI) | payer MEDICARE, OTHER | LOC: WOUNDCARE 14:04 | PROVIDERS: ATTEND Surgery | DX: E11.622 Type 2 diabetes mellitus with other skin ulcer (principal); L98.493 Non-pressure chronic ulcer of skin of other sites with necrosis of muscle; I70.208 Unspecified atherosclerosis of native arteries of extremities, other extremity; E11.22 Type 2 diabetes mellitus with diabetic chronic kidney disease; N18.6 End stage renal disease; Z99.2 Dependence on renal dialysis | CPT/HCPCS: 99212 ==

== ENCOUNTER → 2019-10-12 | Outpatient (CLI) | payer MEDICARE, OTHER | LOC: WOUNDCARE 14:13 | PROVIDERS: ATTEND Surgery | DX: E11.622 Type 2 diabetes mellitus with other skin ulcer (principal); L98.496 Non-pressure chronic ulcer of skin of other sites with bone involvement without evidence of necrosis; I70.208 Unspecified atherosclerosis of native arteries of extremities, other extremity; E11.22 Type 2 diabetes mellitus with diabetic chronic kidney disease; N18.6 End stage renal disease; Z99.2 Dependence on renal dialysis | CPT/HCPCS: 99212 ==

== ENCOUNTER → 2019-11-02 | Outpatient (CLI) | payer MEDICARE, OTHER | LOC: WOUNDCARE 14:05 | PROVIDERS: ATTEND Surgery | DX: L98.496 Non-pressure chronic ulcer of skin of other sites with bone involvement without evidence of necrosis (principal); I70.298 Other atherosclerosis of native arteries of extremities, other extremity; E11.622 Type 2 diabetes mellitus with other skin ulcer; E11.22 Type 2 diabetes mellitus with diabetic chronic kidney disease; N18.6 End stage renal disease; M86.441 Chronic osteomyelitis with draining sinus, right hand; E11.52 Type 2 diabetes mellitus with diabetic peripheral angiopathy with gangrene | CPT/HCPCS: 99212 ==

== ENCOUNTER → 2019-11-23 | Outpatient (CLI) | payer MEDICARE, OTHER | LOC: WOUNDCARE 14:02 | PROVIDERS: ATTEND Surgery | DX: L97.426 Non-pressure chronic ulcer of left heel and midfoot with bone involvement without evidence of necrosis (principal); I70.208 Unspecified atherosclerosis of native arteries of extremities, other extremity; E11.622 Type 2 diabetes mellitus with other skin ulcer; E11.22 Type 2 diabetes mellitus with diabetic chronic kidney disease; N18.6 End stage renal disease; M86.441 Chronic osteomyelitis with draining sinus, right hand | CPT/HCPCS: 99212 ==

== ENCOUNTER → 2019-12-14 | Outpatient (CLI) | payer MEDICARE, OTHER | LOC: WOUNDCARE 14:02 | PROVIDERS: ATTEND Surgery | DX: E11.622 Type 2 diabetes mellitus with other skin ulcer (principal); E11.52 Type 2 diabetes mellitus with diabetic peripheral angiopathy with gangrene; E11.22 Type 2 diabetes mellitus with diabetic chronic kidney disease; I70.268 Atherosclerosis of native arteries of extremities with gangrene, other extremity; L98.496 Non-pressure chronic ulcer of skin of other sites with bone involvement without evidence of necrosis; M86.441 Chronic osteomyelitis with draining sinus, right hand; N18.6 End stage renal disease | CPT/HCPCS: 99212 ==

== ENCOUNTER → 2020-01-04 | Outpatient (CLI) | payer MEDICARE, OTHER | LOC: WOUNDCARE 14:04 | PROVIDERS: ATTEND Surgery | DX: E11.622 Type 2 diabetes mellitus with other skin ulcer (principal); E11.22 Type 2 diabetes mellitus with diabetic chronic kidney disease; N18.6 End stage renal disease; M86.441 Chronic osteomyelitis with draining sinus, right hand; I70.268 Atherosclerosis of native arteries of extremities with gangrene, other extremity; E11.52 Type 2 diabetes mellitus with diabetic peripheral angiopathy with gangrene; L98.496 Non-pressure chronic ulcer of skin of other sites with bone involvement without evidence of necrosis; Z86.73 Personal history of transient ischemic attack (TIA), and cerebral infarction without residual deficits; I12.0 Hypertensive chronic kidney disease with stage 5 chronic kidney disease or end stage renal disease; Z99.2 Dependence on renal dialysis | CPT/HCPCS: 99212 ==

== ENCOUNTER → 2020-01-25 | Outpatient (CLI) | payer MEDICARE, OTHER | LOC: WOUNDCARE 14:07 | PROVIDERS: ATTEND Surgery | DX: E11.622 Type 2 diabetes mellitus with other skin ulcer (principal); E11.22 Type 2 diabetes mellitus with diabetic chronic kidney disease; E11.52 Type 2 diabetes mellitus with diabetic peripheral angiopathy with gangrene; N18.6 End stage renal disease; M86.441 Chronic osteomyelitis with draining sinus, right hand; L98.496 Non-pressure chronic ulcer of skin of other sites with bone involvement without evidence of necrosis; I70.268 Atherosclerosis of native arteries of extremities with gangrene, other extremity | CPT/HCPCS: 99212 ==

== ENCOUNTER → 2020-02-15 | Outpatient (CLI) | payer MEDICARE, OTHER | LOC: WOUNDCARE 13:59 | PROVIDERS: ATTEND Surgery | DX: E11.622 Type 2 diabetes mellitus with other skin ulcer (principal); E11.52 Type 2 diabetes mellitus with diabetic peripheral angiopathy with gangrene; E11.22 Type 2 diabetes mellitus with diabetic chronic kidney disease; I70.268 Atherosclerosis of native arteries of extremities with gangrene, other extremity; L98.492 Non-pressure chronic ulcer of skin of other sites with fat layer exposed; M86.441 Chronic osteomyelitis with draining sinus, right hand; N18.6 End stage renal disease | CPT/HCPCS: 99212 ==

== ENCOUNTER → 2020-03-07 | Outpatient (CLI) | payer MEDICARE, OTHER | LOC: WOUNDCARE 14:02 | PROVIDERS: ATTEND Surgery | DX: E11.622 Type 2 diabetes mellitus with other skin ulcer (principal); E11.52 Type 2 diabetes mellitus with diabetic peripheral angiopathy with gangrene; E11.22 Type 2 diabetes mellitus with diabetic chronic kidney disease; N18.6 End stage renal disease; M86.441 Chronic osteomyelitis with draining sinus, right hand; I70.269 Atherosclerosis of native arteries of extremities with gangrene, unspecified extremity; L98.494 Non-pressure chronic ulcer of skin of other sites with necrosis of bone | CPT/HCPCS: 99212 ==

== ENCOUNTER → 2020-03-28 | Outpatient (CLI) | payer MEDICARE, OTHER | LOC: WOUNDCARE 13:54 | PROVIDERS: ATTEND Surgery | DX: L98.494 Non-pressure chronic ulcer of skin of other sites with necrosis of bone (principal); I70.298 Other atherosclerosis of native arteries of extremities, other extremity; I96 Gangrene, not elsewhere classified; M86.441 Chronic osteomyelitis with draining sinus, right hand; E11.622 Type 2 diabetes mellitus with other skin ulcer; N18.6 End stage renal disease | CPT/HCPCS: 99212 ==

== ENCOUNTER → 2020-04-18 | Outpatient (CLI) | payer MEDICARE, OTHER | LOC: WOUNDCARE 14:03 | PROVIDERS: ATTEND Surgery | DX: L98.494 Non-pressure chronic ulcer of skin of other sites with necrosis of bone (principal); I70.298 Other atherosclerosis of native arteries of extremities, other extremity; E11.622 Type 2 diabetes mellitus with other skin ulcer; E11.22 Type 2 diabetes mellitus with diabetic chronic kidney disease; N18.6 End stage renal disease; M86.441 Chronic osteomyelitis with draining sinus, right hand; E11.52 Type 2 diabetes mellitus with diabetic peripheral angiopathy with gangrene | CPT/HCPCS: 99212 ==